=== PATIENT | female | born 1970 | race Caucasian/White ===

== ENCOUNTER 2022-04-26 14:46 | Emergency (ER) | payer SELFPAY ==
[~2022-04-26] VITALS: Ht 154.9 cm; Wt 55.0 kg
[2022-04-26 14:50] VITALS: BP 159/79
[2022-04-26] MEDS ORDERED: ONDANSETRON HCL 4MG/2ML INJ IV STA (18:16)
== END 2022-04-26 18:58 | disposition left against medical advice (07) ==
LOC: ER 14:46
DX: Z53.21 Procedure and treatment not carried out due to patient leaving prior to being seen by health care provider (principal)